=== PATIENT | male | born 1955 | race Caucasian/White ===

== ENCOUNTER 2023-04-08 09:03 | Outpatient (OUT) | payer MEDICARE, SELFPAY ==
--- NOTE | 2023-04-08 | CT_ITS ---
[address] [address] Patient Name: NICOLE WALTERS MRN: [id number] date: 1955 Sex: M Assigned Patient Location: LAB Current Patient Location: Accession/Order Number: [id number] Exam Date: 04/08/2023 09:45 Report Date: 04/10/2023 06:36 At the request of: ELVIN MONTES DE OCA Procedure: CT chest w con EXAMINATION: CT chest w con HISTORY: Pharyngoesophageal dysphagia R13.14 ; focal cord paralysis for one month COMPARISON: CT lung cancer screening 11/05/2021, 11/04/2020 TECHNIQUE: Multi-planar CT images were obtained without and/or with IV contrast as indicated by examination type. Axial, Coronal, and Sagittal images. Dose reduction techniques were achieved by using automated exposure control and/or adjustment of mA and/or kV according to patient size and/or use of iterative reconstruction technique. FINDINGS: LUNGS: No visible pulmonary disease. PLEURA: No mass, effusion, or pneumothorax. VASCULATURE: No abnormality. KEMAR: No mass or adenopathy. MEDIASTINUM: No mass or adenopathy. CARDIAC: No enlargement, pericardial thickening, or significant calcification. AORTA: No aneurysm or dissection. CHEST WALL: No mass or axillary adenopathy. BONES: No bone lesion or fracture. LIMITED ABDOMEN: No suspicious findings Limited images of the upper abdomen. OTHER: Soft tissue fullness within posterior right aspect of the larynx. CT/CT chest w con IMPRESSION: 1. Soft tissue fullness within posterior right aspect of the larynx which may represent medial deviation of the right vocal cord consistent with patient's history of vocal cord paralysis. A small mass cannot be excluded. 2. No upper mediastinal mass to account for patient's symptoms. 3. No lymphadenopathy. Electronically authenticated by: IOANA CUMMINGS Date: 04/10/2023 06:36
[2023-04-08 09:30] LABS: Estimated GFR (African America >60 (>=60); Estimated GFR (Non-African Ame >60 (>=60)
== END 2023-04-08 09:04 | disposition home or self-care (01) ==
PROVIDERS: PCP Internal Medicine; Visit Provider Otolaryngology
DX: R13.14 Dysphagia, pharyngoesophageal phase (principal)
CPT/HCPCS: 36415; 71260; 82565; Q9967

== ENCOUNTER 2023-10-03 10:57 | Emergency (ER) | payer MEDICARE, SELFPAY ==
[2023-10-03 10:59] VITALS: BP 134/58; PULSE 59; TEMP 37.2; O2SAT 97; BMI 26.6
--- NOTE | 2023-10-03 11:05 | PC.NURSE ---
RLE reddened and slightly swollen, several abrasions present. Patient reports scraping lower leg 3 days ago and redness is progressively worsening. Hx. of DM. 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
--- NOTE | 2023-10-03 11:19 | ED.EXTPRO1 ---
HPI - Extremity Problem General Chief complaint: Extremity Problem, Nontraumatic Stated complaint: FALL Time Seen by Provider: 10/03/23 11:13 History of Present Illness HPI Narrative: This patient is here for evaluation of his right leg. He scraped it several days ago and wanted to be sure it was getting infected. He has not run a fever at home that he is aware of. He is a limited historian, and admits that he is very very forgetful. He does not remember if he took insulin this morning or not. He says his blood sugars have been running in the 300 range. For what ever reason, he has not recruited the help of his other family members to keep a logbook of his medications and blood sugars. He indicated today to me that he be willing to recruit their help to do so. In either case he has not had shaking chills or rigors. He has multiple superficial abrasions to the right lower leg and the also has a partial amputation to the lower foot on that side as well. Related Data Home Medications ?Medication ?Instructions ?Recorded ?Confirmed atorvastatin 10 mg tablet 10 mg PO DAILY 10/03/23 10/03/23 bupropion HCl 150 mg tablet,12 hr 150 mg PO Q12H 10/03/23 10/03/23 sustained-release lisinopril 2.5 mg tablet 2.5 mg PO DAILY 10/03/23 10/03/23 metoprolol succinate 25 mg 25 mg PO DAILY 10/03/23 10/03/23 tablet,extended release 24 hr primidone 50 mg tablet 50 mg PO Q12H 10/03/23 10/03/23 warfarin 3 mg tablet 3 mg PO DAILY 10/03/23 10/03/23 Allergies Allergy/AdvReac Type Severity Reaction Status Date / Time No Known Drug Allergies Allergy Verified 10/03/23 10:59 Exam Narrative Exam Narrative: Overall he appears well-hydrated well-nourished and is no distress. Problem focused examination shows him to have lower right leg amputation. Otherwise there is very superficial abrasions throughout the anterior tib-fib area over his mid right leg. There is no evidence of extensive cellulitis, there is no subcutaneous emphysema. The knee joint is unremarkable. Proximal leg appears normal. He has no respiratory distress, cognition is normal. He clearly displays memory problems which explains why he cannot remember if he is taking his insulin on a regular basis or not. Constitutional Vital Signs, click to edit/add: Last Vital Signs Temp 98.9 F 10/03/23 10:59 Pulse 59 L 10/03/23 10:59 Resp 18 10/03/23 10:59 BP 134/58 10/03/23 10:59 Pulse Ox 97 10/03/23 10:59 O2 Del Method Room Air 10/03/23 10:59 Course Vital Signs Vital signs: Vital Signs Temperature 98.9 F 10/03/23 10:59 Pulse Rate 59 L 10/03/23 10:59 Respiratory Rate 18 10/03/23 10:59 Blood Pressure 134/58 10/03/23 10:59 Pulse Oximetry 97 10/03/23 10:59 Oxygen Delivery Method Room Air 10/03/23 10:59 Temperature 98.9 F 10/03/23 10:59 Pulse Rate 59 L 10/03/23 10:59 Respiratory Rate 18 10/03/23 10:59 Blood Pressure 134/58 10/03/23 10:59 Pulse Oximetry 97 10/03/23 10:59 Oxygen Delivery Method Room Air 10/03/23 10:59 MDM - Extremity (Nontraumatic) MDM Narrative Medical decision making narrative: Patient does have diabetes and wanted his wounds evaluated here. There is no clinical evidence of infection his white blood cell count is normal as well. I have made several recommendations on how he can better manage his sugar and his insulin compliance. Because the location of the wound and the diabetes I am going to place him on Keflex for 7 days Discharge Plan Discharge Stand Alone Forms: Portal Instructions Chief Complaint: Extremity Problem, Nontraumatic Clinical Impression: Abrasion of anterior right lower leg Patient Disposition: Home, Self-Care Time of Disposition Decision: 12:09 Prescriptions / Home Meds: No Action atorvastatin 10 mg tablet 10 mg PO DAILY bupropion HCl 150 mg tablet sustained-release 12 hr 150 mg PO Q12H warfarin 3 mg tablet 3 mg PO DAILY primidone 50 mg tablet 50 mg PO Q12H metoprolol succinate 25 mg tablet extended release 24 hr 25 mg PO DAILY lisinopril 2.5 mg tablet 2.5 mg PO DAILY Print Language: Bulgarian Additional Instructions: Keflex for 7 days/return for any deterioration or change Referrals: LENARD DE LA PAZ [Primary Care Provider] - 1 week
[2023-10-03 11:41] LABS: Basophils Percent Auto 0.3 % (0.2-2.0); Eosinophils Absolute Auto 0.2 10^3/uL (0.0-0.7); Hematocrit 43.3 % (42.0-54.0); Hemoglobin 14.4 g/dL (14.0-18.0); Immature Granulocytes Abs Auto 0.03 10^3/uL (0.00-0.03); Immature Granulocytes Pct Auto 0.3 % (0.0-0.5); Lymphocytes Absolute Auto 1.2 10^3/uL (1.2-3.8); Lymphocytes Percent Auto 13.3 % (20.5-60.0); Mean Corpuscular HGB Conc 33.3 g/dL (29.9-35.2); Mean Corpuscular Hemoglobin 30.1 pg (25.9-34.0); Mean Corpuscular Volume 90.6 fL (80.0-94.0); Mean Platelet Volume 10.8 fL (9.5-13.5); Monocytes Absolute Auto 0.8 10^3/uL (0.3-0.8); Neutrophils Percent Auto 75.1 % (43.0-75.0); Platelet Count 176 10^3/uL (150-450); Red Blood Count 4.78 10^6/uL (4.70-6.10); Red Cell Distribution Width 13.8 % (11.0-15.0); White Blood Count 9.3 10^3/uL (4.0-11.0)
[2023-10-03 11:46] LABS: Anion Gap 12.8; BUN Creatinine Ratio 19.2; Calcium 9.1 mg/dL (8.5-10.1); Carbon Dioxide 28.8 mmol/L (21.0-32.0); Chloride 105 mmol/L (98-107); Estimated GFR (African America >60 (>=60); Estimated GFR (Non-African Ame >60 (>=60); Glucose 112 mg/dL (74-106); Potassium 4.6 mmol/L (3.5-5.1); Sodium 142 mmol/L (136-145)
--- NOTE | 2023-10-03 12:18 | PC.NURSE ---
Awaiting transport ETA for transport to home.
== END 2023-10-03 13:01 | disposition home or self-care (01) ==
PROVIDERS: Emergency Provider Emergency Medicine Emergency Medical Services; PCP Internal Medicine
DX: S80.811A Abrasion, right lower leg, initial encounter (principal); Z89.432 Acquired absence of left foot; Z79.01 Long term (current) use of anticoagulants; X58.XXXA Exposure to other specified factors, initial encounter; E11.9 Type 2 diabetes mellitus without complications; Z79.4 Long term (current) use of insulin
CPT/HCPCS: 36415; 80048; 85025; 99283